=== PATIENT | male | born 1985 | race Caucasian/White ===

== ENCOUNTER 2024-05-23 20:46 | Inpatient (IN) | payer OTHER ==
[2024-05-23] MEDS ORDERED: Sodium Chloride 0.9% 10 ML Syringe FLUSH PRN (22:00)
[2024-05-23] MEDS ORDERED: Sodium Chloride 0.9% 2.5 ML Syringe FLUSH PRN (22:00)
[2024-05-23] MEDS ORDERED: Sodium Chloride 0.9% 20 ML SDV IV PRN (22:00)
[2024-05-23 22:08] LABS: BASOPHILS ABSOLUTE AUTO 0.07 K/uL (0.00-0.20); BASOPHILS PERCENT AUTO 0.4 % (0.0-1.0); EOSINOPHILS ABSOLUTE AUTO 0.04 K/uL (0.00-0.45); EOSINOPHILS PERCENT AUTO 0.3 % (0.0-6.0); HEMATOCRIT 44.6 % (42.0-52.0); IMMATURE GRAN ABSOLUTE AUTO 0.04 K/uL (0.00-0.05); IMMATURE GRAN PERCENT AUTO 0.3 % (0.0-0.4); LYMPHOCYTES ABSOLUTE AUTO 2.74 K/uL (1.00-4.80); LYMPHOCYTES PERCENT AUTO 17.4 % (24.0-44.0); MEAN CORPUSCULAR HGB CONC 33.6 g/dL (32.0-36.0); MEAN CORPUSCULAR VOLUME 83.2 fL (83.0-99.0); MONOCYTES ABSOLUTE AUTO 1.07 K/uL (0.00-0.80); MONOCYTES PERCENT AUTO 6.8 % (0.0-8.0); NEUTROPHILS PERCENT AUTO 74.8 % (41.0-71.0); PLATELET COUNT,PLT 219 K/uL (150-400); RED BLOOD CELL COUNT 5.36 M/uL (4.52-5.90); WHITE BLOOD CELL COUNT,WBC 15.76 K/uL (3.9-11.3)
[2024-05-23] MEDS: Sodium Chloride 0.9% 1,000 ML IV ONE (22:10)
[2024-05-23] MEDS: Ondansetron 4 MG/2 ML SDV IVPUSH ONE (22:11)
[2024-05-23] MEDS: HYDROmorphone 0.5 MG/0.5 ML Syringe IVPUSH ONE (22:11)
[2024-05-23 22:24] LABS: INR 1.1 (0.86-1.11); PTT,PARTIAL THROMBOPLSTIN TIME 29.5 SEC (23.9-30.7)
[2024-05-23 22:43] LABS: A/G RATIO 1.1 (0.9-1.6); BILIRUBIN TOTAL 1.1 mg/dL (0.2-1.0); CALCIUM 9.3 mg/dL (8.5-10.1); CARBON DIOXIDE,CO2 27.8 mmol/L (21.0-32.0); CREATININE 1.3 mg/dL (0.8-1.3); EST CRCL DRUG DOSING (CG) 94.24 mL/min; MAGNESIUM 1.9 mg/dL (1.8-2.4); PROTEIN TOTAL,TP 7.7 g/dL (6.4-8.2)
[2024-05-23 22:46] LABS: LACTIC ACID 1.2 mmol/L (0.4-2.0)
[2024-05-23] MEDS ORDERED: Acetaminophen 325 MG Tab PO PRN (22:55)
[2024-05-23] MEDS: Piperacillin/Tazobactam 4.5 GM in Sodium Chloride 0.9% 100 ML IV ONE (23:18)
[2024-05-24] MEDS: Lactated Ringers 1,000 ML IV SCH (00:45)
[2024-05-24] MEDS: HYDROmorphone 2 MG/ML Syringe IVPUSH PRN (00:56)
[2024-05-24] MEDS: Piperacillin/Tazobactam 4.5 GM in Sodium Chloride 0.9% 100 ML IV SCH ×2 (04:02→14:30)
[2024-05-24 05:50] LABS: BASOPHILS ABSOLUTE AUTO 0.03 K/uL (0.00-0.20); BASOPHILS PERCENT AUTO 0.2 % (0.0-1.0); EOSINOPHILS ABSOLUTE AUTO 0.02 K/uL (0.00-0.45); EOSINOPHILS PERCENT AUTO 0.2 % (0.0-6.0); HEMATOCRIT 39.7 % (42.0-52.0); HEMOGLOBIN 13.6 g/dL (14.0-18.0); IMMATURE GRAN ABSOLUTE AUTO 0.03 K/uL (0.00-0.05); IMMATURE GRAN PERCENT AUTO 0.2 % (0.0-0.4); LYMPHOCYTES ABSOLUTE AUTO 1.21 K/uL (1.00-4.80); MEAN CORPUSCULAR HEMOGLOBIN 28.6 pg (28.0-32.0); MEAN CORPUSCULAR HGB CONC 34.3 g/dL (32.0-36.0); MEAN CORPUSCULAR VOLUME 83.4 fL (83.0-99.0); MEAN PLATELET VOLUME 11.4 fL (9.4-12.4); MONOCYTES ABSOLUTE AUTO 0.71 K/uL (0.00-0.80); MONOCYTES PERCENT AUTO 5.8 % (0.0-8.0); NEUTROPHILS ABSOLUTE AUTO 10.14 K/uL (1.80-7.70); NEUTROPHILS PERCENT AUTO 83.6 % (41.0-71.0); RED BLOOD CELL COUNT 4.76 M/uL (4.52-5.90); WHITE BLOOD CELL COUNT,WBC 12.14 K/uL (3.9-11.3)
[2024-05-24 06:52] LABS: PLATELET COUNT,PLT 189 K/uL (150-400)
[2024-05-24] MEDS ORDERED: Piperacillin/Tazobactam 4.5 GM in Sodium Chloride 0.9% 100 ML IV SCH (07:00)
[2024-05-24] MEDS: Iopamidol 755 MG/ML 500 ML Multipack Bottle IVPUSH STA (07:41)
[2024-05-24] MEDS ORDERED: Bupivacaine 0.5% 30 ML SDV ONE (08:27)
[2024-05-24] MEDS ORDERED: Ondansetron 4 MG/2 ML SDV ONE ×2 (08:31→09:20)
[2024-05-24] MEDS ORDERED: HYDROmorphone 1 MG/ML Syringe ONE (08:31)
[2024-05-24] MEDS ORDERED: dexmedeTOMIDine HCl 200 MCG/2 ML SDV ONE (08:35)
[2024-05-24] MEDS ORDERED: Sodium Chloride 0.9% 20 ML ONE (08:35)
[2024-05-24] MEDS ORDERED: Ropivacaine 0.5% 5 MG/ML 30 ML SDV ONE (08:36)
[2024-05-24] MEDS ORDERED: Bupivacaine 0.25% 30 ML SDV ONE (08:36)
[2024-05-24] MEDS ORDERED: Lidocaine 1% 5 ML VIAL ONE (08:52)
[2024-05-24] MEDS ORDERED: Rocuronium Bromide 50 MG/5 ML Syringe ONE (08:52)
[2024-05-24] MEDS ORDERED: Propofol 200 MG/20 ML SDV ONE (08:52)
[2024-05-24] MEDS ORDERED: Midazolam 1 MG/ML 2 ML SDV ONE (08:59)
[2024-05-24] MEDS ORDERED: Morphine 2 MG/ML SYRINGE IVPUSH PRN (09:01)
[2024-05-24] MEDS ORDERED: Albuterol 0.083% 2.5 MG/3 ML Neb Soln NEB PRN (09:01)
[2024-05-24] MEDS ORDERED: Naloxone 0.4 MG/ML SDV IVPUSH PRN (09:01)
[2024-05-24] MEDS ORDERED: Metoclopramide 10 MG/2 ML SDV IVPUSH PRN (09:01)
[2024-05-24] MEDS ORDERED: Phenylephrine HCl In 0.9% NaCl 1 MG/10 ML Syringe IVPUSH PRN (09:01)
[2024-05-24] MEDS ORDERED: Ondansetron 4 MG/2 ML SDV IVPUSH PRN (09:01)
[2024-05-24] MEDS ORDERED: HYDROmorphone 1 MG/ML Syringe IVPUSH PRN (09:01)
[2024-05-24] MEDS ORDERED: fentaNYL 50 MCG/ML SDV IVPUSH PRN (09:01)
[2024-05-24] MEDS ORDERED: Phenylephrine HCl In 0.9% NaCl 1 MG/10 ML Syringe ONE (09:18)
[2024-05-24] MEDS ORDERED: Dexamethasone 4 MG/ML 5 ML MDV ONE (09:20)
[2024-05-24] MEDS ORDERED: Ketorolac 30 MG/ML SDV ONE (09:42)
[2024-05-24] MEDS ORDERED: Sugammadex Sodium 200 MG/2 ML VIAL IV ONE (09:42)
[2024-05-24] MEDS ORDERED: ceFAZolin 1 GM Vial ONE (10:07)
[2024-05-24] MEDS: Ketorolac 30 MG/ML SDV IVPUSH PRN (17:03)
[2024-05-24 17:09] LABS: COLOR,URINE ORANGE; GLUCOSE,URINE NEGATIVE (NEGATIVE); KETONES,URINE TRACE mg/dL (NEGATIVE); LEUKOCYTE ESTERASE,URINE NEGATIVE (NEGATIVE); NITRITE,URINE NEGATIVE (NEGATIVE); OCCULT BLOOD,URINE NEGATIVE (NEGATIVE); PROTEIN,URINE TRACE mg/dL (NEGATIVE)
[2024-05-24 17:23] LABS: APPEARANCE,URINE HAZY; BILIRUBIN,URINE SMALL (NEGATIVE)
[2024-05-24 17:24] LABS: RBC,URINE 0-1 (0-2/HPF)
[2024-05-24 17:25] LABS: BACTERIA,URINE RARE (NEGATIVE); EPITHELIAL CELLS,URINE RARE (NONE-FEW); WBC,URINE 0-4 (0-5/HPF)
[2024-05-24] MEDS: Sennosides/Docusate Sodium 50-8.6 MG Tab PO SCH (21:25)
[2024-05-25] MEDS: Acetaminophen/oxyCODONE 325-5 MG Tab PO PRN (04:28)
[2024-05-25] MEDS: Scopalamine 1mg/3day Transdermal Patch TRDERM PRN (05:00)
[2024-05-25] MEDS: Ondansetron 4 MG/2 ML SDV IVPUSH PRN (05:00)
[2024-05-25 08:49] LABS: HEMATOCRIT 44.7 % (42.0-52.0); MEAN CORPUSCULAR HEMOGLOBIN 27.9 pg (28.0-32.0); MEAN CORPUSCULAR HGB CONC 33.6 g/dL (32.0-36.0); MEAN CORPUSCULAR VOLUME 83.2 fL (83.0-99.0); MEAN PLATELET VOLUME 10.1 fL (9.4-12.4); PLATELET COUNT,PLT 193 K/uL (150-400); RED BLOOD CELL COUNT 5.37 M/uL (4.52-5.90); WHITE BLOOD CELL COUNT,WBC 14.63 K/uL (3.9-11.3)
[2024-05-25] MEDS ORDERED: Ketorolac 30 MG/ML SDV IVPUSH SCH (09:30)
[2024-05-25] MEDS: Cyclobenzaprine 10 MG Tab PO SCH (13:36)
[2024-05-25] MEDS: Ketorolac 30 MG/ML SDV IVPUSH SCH (13:37)
[2024-05-25] MEDS: Multivitamin Tab PO SCH (20:21)
[2024-05-25] MEDS: Polyethylene Glycol 3350 Powder 17 GM Packet PO SCH (20:21)
[2024-05-26 08:13] LABS: HEMATOCRIT 42.3 % (42.0-52.0); HEMOGLOBIN 14.5 g/dL (14.0-18.0); MEAN CORPUSCULAR HEMOGLOBIN 28.4 pg (28.0-32.0); MEAN CORPUSCULAR HGB CONC 34.3 g/dL (32.0-36.0); MEAN CORPUSCULAR VOLUME 82.8 fL (83.0-99.0); MEAN PLATELET VOLUME 10.4 fL (9.4-12.4); PLATELET COUNT,PLT 221 K/uL (150-400); RED BLOOD CELL COUNT 5.11 M/uL (4.52-5.90); WHITE BLOOD CELL COUNT,WBC 12.97 K/uL (3.9-11.3)
[2024-05-26 12:44] LABS: CALCIUM 8.9 mg/dL (8.5-10.1); CARBON DIOXIDE,CO2 23.5 mmol/L (21.0-32.0); CREATININE 1.5 mg/dL (0.8-1.3); EST CRCL DRUG DOSING (CG) 81.68 mL/min; MAGNESIUM 2.1 mg/dL (1.8-2.4); PHOSPHORUS 4.1 mg/dL (2.6-4.7)
[2024-05-27 06:20] LABS: HEMATOCRIT 42.1 % (42.0-52.0); HEMOGLOBIN 14.1 g/dL (14.0-18.0); MEAN CORPUSCULAR HEMOGLOBIN 27.6 pg (28.0-32.0); MEAN CORPUSCULAR HGB CONC 33.5 g/dL (32.0-36.0); MEAN CORPUSCULAR VOLUME 82.5 fL (83.0-99.0); MEAN PLATELET VOLUME 10.9 fL (9.4-12.4); PLATELET COUNT,PLT 222 K/uL (150-400); WHITE BLOOD CELL COUNT,WBC 13.66 K/uL (3.9-11.3)
[2024-05-27 06:45] LABS: CALCIUM 9.1 mg/dL (8.5-10.1); CARBON DIOXIDE,CO2 25.2 mmol/L (21.0-32.0); CREATININE 1.4 mg/dL (0.8-1.3); EST CRCL DRUG DOSING (CG) 87.51 mL/min; POTASSIUM,K 3.7 mmol/L (3.5-5.1)
[2024-05-27] MEDS: metroNIDAZOLE 250 MG Tab PO SCH (11:05)
[2024-05-27] MEDS: Ciprofloxacin 500 MG Tab PO SCH (11:19)
== END 2024-05-27 13:15 | disposition home or self-care (01) | DRG 398 ==
LOC: MW.ED 20:46 → MW.MS 22:55 → OBSVTOIN 05-25 11:29 → MW.MS 05-25 11:30
PROVIDERS: ADMIT Surgery; ATTEND Surgery
PROC: 0DTJ4ZZ Resection of Appendix, Percutaneous Endoscopic Approach (ICD-10-PCS; principal; 2024-05-23)
DX: K35.32 Acute appendicitis with perforation, localized peritonitis, and gangrene, without abscess (principal); J98.11 Atelectasis; K56.7 Ileus, unspecified; K91.89 Other postprocedural complications and disorders of digestive system; H91.90 Unspecified hearing loss, unspecified ear; G47.30 Sleep apnea, unspecified; E86.0 Dehydration; F12.90 Cannabis use, unspecified, uncomplicated; F90.9 Attention-deficit hyperactivity disorder, unspecified type; M19.90 Unspecified osteoarthritis, unspecified site; M54.9 Dorsalgia, unspecified; F43.10 Post-traumatic stress disorder, unspecified; G89.29 Other chronic pain; R10.31 Right lower quadrant pain; G43.909 Migraine, unspecified, not intractable, without status migrainosus; Z98.890 Other specified postprocedural states; Z90.49 Acquired absence of other specified parts of digestive tract; Z79.899 Other long term (current) drug therapy; Z90.89 Acquired absence of other organs
CPT/HCPCS: 36415 ×3; 74177; 80053; 81001; 83605; 83735; 85025 ×2; 85027; 85610; 85730; 87040 ×2; 96361 ×3; 96365; 96366; 96375 ×2; 96376 ×2; 99284; A9270 ×4; G0378 ×3; J0131; J0665 ×2; J0690; J1100; J1171 ×6; J1885 ×3; J2003; J2250; J2371; J2405 ×3; J2543 ×5; J2704; J2795; J7030; J7120 ×4; Q9967; 00840; 64488; 71045; 71045-26; 74018; 74018-26; 80048; 84100; 88304; J3490